=== PATIENT | male | born 1975 | race Hispanic/Latino ===

== ENCOUNTER 2020-03-28 12:28 | Emergency (ER) | payer BC ==
[~2020-03-28 12:28] MED LIST: Iopamidol 370 76% 100 ML VIAL ONE
[2020-03-28 13:00] LABS: #Basophils 0.1 thou/uL (0.0-0.2); #Lymphocytes 1.8 thou/uL (1.20-3.40); #Monocytes 0.4 thou/uL (0.11-0.59); #Neutrophils 2.9 thou/uL (1.40-6.50); %Basophils 1.1 % (0.0-1.0); %Eosinophils 0.5 % (0.0-10.0); %Lymphocytes 33.9 % (21.0-51.0); %Monocytes 7.6 % (0.0-10.0); %Neutrophils 56.8 % (42.0-75.0); Hemoglobin 14.4 g/dL (14.0-18.0); Mean Corpuscular HGB CONC 32.6 g/dL (32.0-36.0); Mean Corpuscular Hemoglobin 29.5 pg (27.0-31.0); Mean Corpuscular Volume 90.5 fL (78.0-98.0); Mean Platelet Volume 11.1 fL (7.4-10.4); Platelet Count 134 thou/uL (130-400); RBC Distribution Width 11.5 % (11.5-14.5); White Blood Cell (WBC) Count 5.2 thou/uL (4.8-10.8)
[2020-03-28 13:15] LABS: ALT (SGPT) 96 U/L (8-55); AST (SGOT) 35 U/L (5-34); Albumin 4.4 g/dL (3.5-5.0); Alkaline Phosphatase 52 U/L (40-110); Anion Gap 15 mmol/L (10-20); BUN (Urea Nitrogen) 13 mg/dL (8.9-20.6); Bilirubin, Total 0.6 mg/dL (0.2-1.2); Calc. Creatinine Clearance 0 mL/min (70-130); Calcium 9.1 mg/dL (7.8-10.44); Carbon Dioxide 22 mmol/L (22-29); Chloride 107 mmol/L (98-107); Estimated GFR-MDRD Greater than 90; Globulin 3.4 g/dL (2.4-3.5); Glucose 163 mg/dL (70-105); Potassium 3.6 mmol/L (3.5-5.1); Protein, Total 7.8 g/dL (6.0-8.3); Sodium 140 mmol/L (136-145)
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
== END 2020-03-28 14:00 | disposition home or self-care (01) ==
LOC: NAV ERS 12:28
DX: S13.9XXA Sprain of joints and ligaments of unspecified parts of neck, initial encounter (principal); S20.212A Contusion of left front wall of thorax, initial encounter; S40.812A Abrasion of left upper arm, initial encounter; S00.03XA Contusion of scalp, initial encounter; V43.52XA Car driver injured in collision with other type car in traffic accident, initial encounter
CPT/HCPCS: 70450; 71260; 72125; 74177; 80053; 85025; Q9967